=== PATIENT | female | born 1995 | race Hispanic/Latino ===

== ENCOUNTER 2024-06-25 08:44 | Day surgery (SDC) | payer BC ==
[2024-06-24 11:36] VITALS: BMI 27.3
[2024-06-25] MEDS ORDERED: Lidocaine 2% PF 5 ML VIAL ONE (09:07)
[2024-06-25] MEDS ORDERED: fentaNYL 50 mcg/mL 1 mL Vial ONE ×3 (09:08→10:09)
[2024-06-25] MEDS ORDERED: Lidocaine 4% PF 5 ML AMP ONE (09:08)
[2024-06-25] MEDS ORDERED: Dexamethasone 4 mg/ml Vial ONE (09:08)
[2024-06-25] MEDS ORDERED: Ondansetron PF 4 MG/2 ML Vial ONE (09:08)
[2024-06-25] MEDS ORDERED: PROPOFOL 20 ML ONE (09:08)
[2024-06-25] MEDS ORDERED: Rocuronium Bromide 10 MG/ML (10ML VIAL) ONE (09:08)
[2024-06-25] MEDS ORDERED: Indocyanine Green 25 MG/10 ML VIAL ONE (09:14)
[2024-06-25] MEDS ORDERED: Ketorolac Tromethamine 30 MG (1 mL) VIAL ONE (09:23)
[2024-06-25] MEDS ORDERED: Midazolam HCl 2 mg/2 ml Vial ONE (09:28)
[2024-06-25] MEDS ORDERED: SUGAMMADEX SODIUM 200 MG/2 ML VIAL ONE (09:59)
[2024-06-25] MEDS ORDERED: HYDROcodone/Acetaminophen 5/325 mg Tablet ONE (11:24)
[2024-06-25] MEDS ORDERED: Promethazine HCl 25 MG/ML VIAL ONE (11:33)
== END 2024-06-25 12:00 | disposition home or self-care (01) ==
LOC: CSHSDC 08:44
PROVIDERS: ATTEND Surgery
PROC: 0FT44ZZ Resection of Gallbladder, Percutaneous Endoscopic Approach (ICD-10-PCS; principal; 2024-06-25)
DX: K80.10 Calculus of gallbladder with chronic cholecystitis without obstruction (principal); I10 Essential (primary) hypertension; E24.9 Cushing's syndrome, unspecified; Z79.899 Other long term (current) drug therapy
CPT/HCPCS: 88304; C1889; J1100; J1885; J2001; J2250; J2405; J2550; J2704; J3010